=== PATIENT | male | born 1980 | race Hispanic/Latino ===

== ENCOUNTER 2019-12-16 15:44 | Emergency (ER) | payer SELFPAY ==
[2019-12-16 15:57] VITALS: BP 128/79; PULSE 91; RESP 19; TEMP 36.7; O2SAT 99; BMI 38.7
--- NOTE | 2019-12-16 16:03 | DI.RAD.S_ITS ---
PROCEDURE: XR WRIST LT MIN 3V INDICATIONS: swollen and painful x one month TECHNIQUE: 4 views of the wrist were acquired. COMPARISON: [facility], CR, XR HAND LT MIN 3V, 12/16/2019, 15:54. FINDINGS: Bones: No fractures or dislocations. No suspicious bony lesions. Scaphoid view: No navicular fractures are seen. Soft tissues: Mild generalized soft tissue swelling is seen. IMPRESSION: Soft tissue swelling is seen, without an acute abnormality seen by plain film. If there is point tenderness (or other clinical suspicion for a fracture not seen on these images) then a dedicated CT or a short-term followup plain film series could be considered for further evaluation, as clinically appropriate. If it would be helpful for clinical management decision making in this patient with chronic wrist pain, please consider a dedicated wrist MRI for further evaluation (assuming that there is no contraindication). If there is strong clinical concern for a ligamentous abnormality, this should be performed according to the MR arthrogram protocol. Dictated by: Jorden Wyatt M.D. on 12/16/2019 at 15:18 Approved by: Jorden Wyatt M.D. on 12/16/2019 at 15:19
--- NOTE | 2019-12-16 16:03 | DI.RAD.S_ITS ---
PROCEDURE: XR HAND LT MIN 3V INDICATIONS: swollen and painful x one month TECHNIQUE: 3 views of the hand(s) acquired. COMPARISON: [facility], CR, XR WRIST LT MIN 3V, 12/16/2019, 15:54. FINDINGS: Bones: No fractures or dislocations. Carpal bones are normally aligned. No suspicious bony lesions. Soft tissues: Generalized soft tissue swelling is seen. IMPRESSION: Soft tissue swelling, without a focal bony abnormality detected. Dictated by: Jorden Wyatt M.D. on 12/16/2019 at 15:19 Approved by: Jorden Wyatt M.D. on 12/16/2019 at 15:20
[2019-12-16 18:15] VITALS: BP 133/93; PULSE 77; O2SAT 100
--- NOTE | 2019-12-16 18:20 | ED_ITS ---
HPI - Extremity Problem <Deonte MuñizKENDALL Pickard - Last Filed: 12/17/19 00:33> General Chief complaint: Extremity Problem,Nontraumatic Stated complaint: left wrist and hand swelling and pain Time Seen by Provider: 12/16/19 17:30 Source: patient Mode of arrival: Ambulatory Limitations: no limitations History of Present Illness HPI Narrative: This is a 39-year-old male, current tobacco sure, presents to ED with chief complain of dominant, left wrist and finger pain and swelling for last 4 weeks. Patient associated his pain with punching a wall in his sleep according to his . Patient was not able to recall the incident. 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 Patient states thought he had a gout but this has not been improving. Patient denies fever, chills, nausea or vomiting. Patient denies warmth or redness to affected site. Patient reports numbness to index and long fingers in left hand. Patient reports pain worse with movement of his wrist, fingers, and hand. The patient has been taking ibuprofen 600 mg twice a day for discomfort. He was seen at walk-in clinic about 3 weeks ago and was treated with prednisone with the diagnosis of gout at that time. Related Data Previous Rx's Medication Instructions Recorded prednisone 20 mg PO DAILY 5 Days #5 tab 12/16/19 Allergies Allergy/AdvReac Type Severity Reaction Status Date / Time No Known Drug Allergies Allergy Verified 12/16/19 16:02 Review of Systems <Deonte MuñizMelly WEB KNITTER - Last Filed: 12/17/19 00:33> Review of Systems Narrative: General: Denies fever, chills, fatigue, malaise, sweats. HEENT: Denies sinus pain, ear pain, sore throat, difficulty swallowing, dizziness. Respiratory: Denies dyspnea, cough, wheezing, hemoptysis, sputum. Cardiovascular: Denies chest pain, palpitations, orthopnea, edema. Gastrointestinal: Denies nausea, vomiting, abdominal pain, diarrhea, constipation, melena. : Denies dysuria, frequency, incontinence, hematuria, urinary retention. Musculoskeletal: See HPI Skin: See HPI Neurologic: Denies (+) weakness to left hand index and long fingers, headache, numbness, change in speech, confusion, seizures, incoordination. Psychiatric: No concerning psychosocial issues. 12-point review of systems is negative except for those stated above. Patient History <Deonte BeardKENDALL Apple - Last Filed: 12/17/19 00:33> Medical History Gout (Acute) Social History Smoking Status: Current every day smoker Smoking Status: Current every day smoker tobacco type: smokeless tobacco alcohol intake frequency: a few times a month Substance Use Type: does not use Exam <Deonte MuñizKENDALL Pickard - Last Filed: 12/17/19 00:33> Narrative Exam Narrative: General appearance: well developed, well nourished, in no acute distress. Head: normocephalic, atraumatic, no scalp lesions, non-tender. ENT: Hearing grossly intact. Airway patent. Neck/Thyroid: neck supple, full range of motion, no visible masses or meningeal signs. No JVD, non-tender without lymphadenopathy. Skin: no suspicious rashes, lesions over visible areas. Warm and dry and appropriate color for ethnicity. Heart: no clubbing, no cyanosis, no edema. S1 and S2 normal. RRR w/o murmurs, clicks, or bruits. Lungs: Breathing even and unlabored. No stridor. No accessory muscles used. Able to speak in full sentences. Chest: normal shape and expansion. Abdomen: non-obese, non-distended. Neurologic: alert and oriented. Cognitive exam, [employer] and PNS grossly intact on informal exam. Psych: good eye contact, normal affect. Initial Vital Signs Initial Vital Signs: Vital Signs Temperature 98.1 F 12/16/19 15:57 Pulse Rate 91 H 12/16/19 15:57 Respiratory Rate 19 12/16/19 15:57 Blood Pressure 128/79 12/16/19 15:57 Pulse Oximetry 99 12/16/19 15:57 Extrem Left upper extremity: wrist Details: abnormal to inspection, tenderness, swelling, normal ROM (but painful with attempts) and radial pulse present; no unusual warmth, no abrasions, no lacerations, no ecchymosis, Tinel's positive (positive) and Phalen's positive (positive) and hand Details: normal to inspection, normal capillary refill, neurosensory exam abnormal Details: median nerve sensory function abnormal Details: decreased light touch sensation, tendon exam abnormal, vascular exam Details: radial pulse present and normal capillary refill, normal ROM of fingers (but painful) and swelling (carpals); no unusual warmth, no abrasions, no lacerations, no ecchymosis and no crepitus <Eduar Lopes MD - Last Filed: 12/18/19 08:09> Initial Vital Signs Initial Vital Signs: Vital Signs Temperature 98.1 F 12/16/19 15:57 Pulse Rate 91 H 12/16/19 15:57 Respiratory Rate 19 12/16/19 15:57 Blood Pressure 128/79 12/16/19 15:57 Pulse Oximetry 99 12/16/19 15:57 Scores <KENDALL Rankin - Last Filed: 12/17/19 00:33> GCS Edith coma scale eye opening: Spontaneous [place] coma scale verbal response: Orientated [place] coma scale motor response: Obey commands [place] coma scale total score: 15 Course <KENDALL Rankin - Last Filed: 12/17/19 00:33> Orders Ordered: ED Orders 12/16/19 16:03 XR hand LT min 3V Stat XR wrist LT min 3V Stat Vital Signs Vital signs: Vital Signs - 8 hr 12/16/19 18:15 12/16/19 18:38 Pulse Rate 77 80 Respiratory Rate 14 Blood Pressure 133/93 H 139/100 H Pulse Oximetry 100 99 <Eduar Lopes MD - Last Filed: 12/18/19 08:09> Orders Ordered: ED Orders 12/16/19 16:03 XR hand LT min 3V Stat XR wrist LT min 3V Stat Vital Signs Vital signs: Vital Signs - 8 hr 12/16/19 18:15 12/16/19 18:38 Pulse Rate 77 80 Respiratory Rate 14 Blood Pressure 133/93 H 139/100 H Pulse Oximetry 100 99 MDM - Extremity (Nontraumatic) <KENDALL Rankin - Last Filed: 12/17/19 00:33> Differential Diagnosis Differential diagnosis: Likely cellulitis and other (gout, carpal tunnel syndrome) Medical Records Attestation: I reviewed the patient's medical records. Imaging Data XR-Hand LT: Radiologist's Impression: [address] [address] XRay Report Signed Patient: Raheel Katz AMR#: [id number] : 1980Acct:[id number] Age/Sex: 39 / MDate of Service: 12/16/19 Loc: ED Accession Number: [id number] Procedure: XR wrist LT min 3V Ordering Provider: Eduar Lopes MD PROCEDURE: XR WRIST LT MIN 3V INDICATIONS: swollen and painful x one month TECHNIQUE: 4 views of the wrist were acquired. COMPARISON: [facility], XR HAND LT MIN 3V, 12/16/2019, 15:54. FINDINGS: Bones: No fractures or dislocations. No suspicious bony lesions. Scaphoid view: No navicular fractures are seen. Soft tissues: Mild generalized soft tissue swelling is seen. IMPRESSION: Soft tissue swelling is seen, without an acute abnormality seen by plain film. If there is point tenderness (or other clinical suspicion for a fracture not seen on these images) then a dedicated CT or a short-term followup plain film series could be considered for further evaluation, as clinically appropriate. If it would be helpful for clinical management decision making in this patient with chronic wrist pain, please consider a dedicated wrist MRI for further evaluation (assuming that there is no contraindication). If there is strong clinical concern for a ligamentous abnormality, this should be performed according to the MR arthrogram protocol. Dictated by: Jorden Wyatt M.D. on 12/16/2019 at 15:18 Approved by: Jorden Wyatt M.D. on 12/16/2019 at 15:19 XR-Wrist LT: Radiologist's Impression: [address] [address] XRay Report Signed Patient: Raheel Katz AMR#: [id number] : 1980Acct:[id number] Age/Sex: 39 / MDate of Service: 12/16/19 Loc: ED Accession Number: [id number] Procedure: XR hand LT min 3V Ordering Provider: Eduar Lopes MD PROCEDURE: XR HAND LT MIN 3V INDICATIONS: swollen and painful x one month TECHNIQUE: 3 views of the hand(s) acquired. COMPARISON: [facility], CR, XR WRIST LT MIN 3V, 12/16/2019, 15:54. FINDINGS: Bones: No fractures or dislocations. Carpal bones are normally aligned. No suspicious bony lesions. Soft tissues: Generalized soft tissue swelling is seen. IMPRESSION: Soft tissue swelling, without a focal bony abnormality detected. Dictated by: Jorden Wyatt M.D. on 12/16/2019 at 15:19 Approved by: Jorden Wyatt M.D. on 12/16/2019 at 15:20 MDM Narrative Medical decision making narrative: This is a 39-year-old gentleman who is left dominant hand presents to ED with left wrist and hand pain and swelling for 4 weeks. Patient associated symptoms as after he punched a wall in his sleep which is not able to recall it but her his 's. There is moderate swelling in left wrist and hand. There is no significant warmth or redness to palpate. Patient reports decrease sensation to left index and long fingers. Patient is able to move her is fingers but reports increasing pain. Cap refill is intact with intact radial pulse on affected wrist. Positive Tinel and Phalen tests. X-ray test on left hand and wrist does not show acute findings but generalize soft tissue swelling. Considered cellulitis and gout. Patient is afebrile with assuring rest of the vital signs. Patient does not have known history of gout but was treated as gout about 3 weeks ago at walk-in clinic with 10 day course of tapering dose of prednisone without much improvement. No warmth or redness on affected hand or wrist. Patient's left hand and wrist pain is may due to carpal tunnel syndromes. 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 Patient provided with left wrist splint and provided 2 days workup note. Patient advised to use NSAIDS upto 3 times a day with food as needed for pain. He was discharged to home with 5 day course of small dose of prednisone to decrease inflammation. Patient advised to use omeprazole to GI protectant when he is concurrently using and stays and steroids and does medications side effects has been discussed. Patient advised to arrange primary care physician by calling [facility] and a referral to [facility] for further evaluation and treatment. Return precautions were discussed with patient and patient verbalized understanding and agreement with treatment plan. Discharge Plan Departure Patient Disposition: Home Clinical Impression: Carpal tunnel syndrome of left wrist Acute wrist pain Qualifiers: Laterality: left Qualified Code(s): M25.532 - Pain in left wrist Discharge Date/Time: 12/16/19 18:39 Instructions: DI for Carpal Tunnel Syndrome, DI for Wrist Pain Activity Restrictions/Additional Instructions: You have been diagnosed with [left wrist pain and numbness to index and long fingers. X-ray test does not show acute findings such as fractures or disl ocation but soft tissue swelling. You may have carpal tunnel syndrome from doing repetitive motion on your dominant hand.]. What to do: *Take your medications as directed. Please take steroids, which prednisone, daily for next 5 days. You can continue to take Tylenol and or Motrin as needed for discomfort. Tylenol 650-1000 mg as needed up to 4 times a day. Ibuprofen 400-600 mg 3 times a day as needed for pain with food to decrease GI irritation. Steroids can increase blood sugars and can interfere with sleep. Please take [id number] omeprazole when you take ibuprofen and steroids to get there to decrease GI irritation. *Follow up with your primary care provider in 2-3 days, call for an appointment. Let them know you were seen in the ED and that we asked you to be [facility] in [facility]. Contact [facility] to arrange a primary care physician. I have provided [facility] contact number if her pain persists for further evaluation and management. *Return to ED if you have any new, worsening, or concerning symptoms, such as [chest pain, breathing difficulty, unable to tolerate fluids, fever, increased tingling/numbness/weakness on affected arm or any acute concerns]. Prescriptions: New prednisone 20 mg tablet 20 mg PO DAILY 5 Days Qty: 5 RF: 0 Referrals: [facility] [Provider Group] [facility] [Outside] Stand Alone Forms: Work Release Note
[2019-12-16 18:38] VITALS: BP 139/100; PULSE 80; RESP 14; O2SAT 99
== END 2019-12-16 18:39 | disposition home or self-care (01) ==
PROVIDERS: Emergency Provider Nurse Practitioner Family
DX: G56.02 Carpal tunnel syndrome, left upper limb (principal)
CPT/HCPCS: 73110; 73130; 99283